=== PATIENT | female | born 1945 | race Caucasian/White ===

== ENCOUNTER 2016-03-29 04:57 | Inpatient (IN) | payer MEDICARE, OTHER ==
[~2016-03-29 04:57] MED LIST: ASPIRIN325 M3 PO; COREG3.125 M1 PO; CYCLOBENZAPRINE10 M1 PO; DIOVAN320 M1 PO; FENOFIBRATE145 M2 PO; FUROSEMIDE40 MG PO; GLUCOPHAGE500 M3 PO; INDOMETHACIN50 MG PO; LASIX40 M1 PO; METFORMIN HCL500 M2 PO; MOBIC15 M2 PO; NAPROSYN500 M1 PO; NAPROXEN500 M1 PO; NORCO 7.5-3251 EACH PO; NORVASC5 M2 PO; OMEPRAZOLE20 M4 PO; POTASSIUM CHLO10 ME2 PO; POTASSIUM CHLO10 MEQ PO; TRADJENTA5 M1 PO; ULTRAM50 M1 PO
[2016-03-29 05:55] LABS: INR 0.9 INR (0.9-1.1); PROTHROMBIN TIME 10.5 SECONDS (9.0-13.6)
[2016-03-30 05:03] LABS: BASO % 0.1 % (0-2); HCT-HEMATOCRIT 34.3 % (34.0-49.0); HGB-HEMOGLOBIN 11.4 gm/dl (12.0-15.5); IMMATURE GRANULOCYTES ABSOLUTE 0.03 tho/cmm (0-0.03); IMMATURE GRANULOCYTES PERCENT 0.2 % (0-0.3); LYMPH % 11.2 % (20-45); LYMPH ABSOLUTE COUNT 1.5 tho/cmm (0.8-4.5); MCH (MEAN CORPUSCULAR HGB) 27.9 pg (28.0-32.0); MCHC MEAN CORPUSCULAR HGB CONC 33.2 % (32.0-36.0); MCV (MEAN CELL VOLUME) 84.1 fl (82.0-96.0); MEAN PLATELET VOLUME 9.5 cmc (9.4-12.4); MONO % 9.3 % (0-12); MONOCYTE ABSOLUTE COUNT 1.2 tho/cmm (0.0-1.2); NEUTROPHIL ABSOLUTE COUNT 10.2 tho/cmm (1.6-8.0); NEUTROPHIL-AUTOMATED 10.2 tho/cmm (1.6-8.0); NEUTROPHILS % 79.2 % (40-80); PLATELET COUNT 209 tho/cmm (150-450); RED BLOOD COUNT 4.08 mil/cmm (4.00-5.20); WHITE BLOOD COUNT 12.9 tho/cmm (4.0-10.0)
[2016-03-30] MEDS ORDERED: ULTRAM50 M1 PO (08:02)
== END 2016-03-30 11:50 | DRG 470 ==
LOC: SHSC 04:57 → ORE 07:00 → PACU 10:28 → 5EA 11:50
PROVIDERS: ADMIT Orthopaedic Surgery
PROC: 0SRD0J9 Replacement of Left Knee Joint with Synthetic Substitute, Cemented, Open Approach (ICD-10-PCS; principal; 2016-03-29)
DX: M17.12 Unilateral primary osteoarthritis, left knee (principal); I10 Essential (primary) hypertension; Z96.651 Presence of right artificial knee joint; I25.10 Atherosclerotic heart disease of native coronary artery without angina pectoris; E78.5 Hyperlipidemia, unspecified; M21.162 Varus deformity, not elsewhere classified, left knee
CPT/HCPCS: C1713; C1776; C9290; J0690; J1885; J2270; J3010